=== PATIENT | female | born 1965 | race Caucasian/White ===

== ENCOUNTER 2025-05-09 06:11 | Day surgery (SDC) | payer OTHER ==
[~2025-05-09] VITALS: Ht 162.6 cm; Wt 56.6 kg
[~2025-05-09 06:11] MED LIST: CeFAZolin Sodium 2,000 MG VIAL ONE; DOCU100 PO; Mononessa1 EACH; OXYACE5T PO; PROM25 PO; RXOXYACE PO; YAZ
[2025-05-09] MEDS ORDERED: DIPH50 PO (06:30)
[2025-05-09] MEDS ORDERED: SUPER B-50 COM1 EACH PO (06:31)
[2025-05-09] MEDS ORDERED: Hair, Skin & N1 EACH PO (06:31)
[2025-05-09] MEDS ORDERED: PROBIOTIC1 EA13 PO (06:32)
[2025-05-09] MEDS ORDERED: Dexmedetomidine HCL 200 MCG / 2 ML ONE (06:44)
[2025-05-09] MEDS ORDERED: Lidocaine 2%-Epineph 1:200000 20 ML SDV ONE (06:45)
[2025-05-09] MEDS ORDERED: FentaNYL Citrate 50 MCG/ML 2 ML Injection ONE (06:48)
[2025-05-09] MEDS ORDERED: Ondansetron HCl 2 MG / ML 2ML Vial ONE (06:48)
[2025-05-09] MEDS ORDERED: Midazolam HCl 1MG / ML 2ML Vial ONE (06:48)
[2025-05-09] MEDS ORDERED: Dexamethasone Sod Phos 10 MG/ML 1ML VIAL ONE (06:48)
[2025-05-09] MEDS ORDERED: Sugammadex Sodium 200 MG/2ML SDV (100 MG/ML) ONE (06:48)
[2025-05-09] MEDS ORDERED: Rocuronium Bromide 10 MG/ML 5ML Injection IV ONE (06:48)
[2025-05-09] MEDS ORDERED: Bupivacaine 0.5% HCl 5 MG/ML 30MLVIAL ONE (06:53)
--- NOTE | 2025-05-09 07:17 | NUR ---
05/09/25 0717 DULCE MALHOTRA T/O 0709 O2 3L NC 100% VERSED GIVEN BY DR [place] ANESTHESIAOLOGIST INTERSCALENE BLOCK BLOCK START: 713 END BLOCK:716
[2025-05-09] MEDS ORDERED: Phenylephrine HCl 100 MCG/ML-NS 10MLSYR (1MG/10ML) ONE (07:40)
[2025-05-09] MEDS ORDERED: ePHEDrine Sulfate 50 MG/ML 1ML Injection ONE (07:43)
[2025-05-09 09:37] VITALS: BP 110/57
--- NOTE | 2025-05-09 09:39 | NUR ---
05/09/25 0939 Steven Barnhart DENIES NAUSEA OR PAIN. STATES RIGHT ARM IS NUMB. ALERT AND ORIENTED.
== END 2025-05-09 10:35 | disposition home or self-care (01) ==
LOC: ORSCSDS 06:11
PROVIDERS: Orthopaedic Surgery
PROC: 0LM14ZZ Reattachment of Right Shoulder Tendon, Percutaneous Endoscopic Approach (ICD-10-PCS; principal; 2025-05-09 07:30)
PROC: 0PB94ZZ Excision of Right Clavicle, Percutaneous Endoscopic Approach (ICD-10-PCS; principal; 2025-05-09 07:30)
PROC: 0RNJ4ZZ Release Right Shoulder Joint, Percutaneous Endoscopic Approach (ICD-10-PCS; principal; 2025-05-09 07:30)
DX: M75.121 Complete rotator cuff tear or rupture of right shoulder, not specified as traumatic (principal); M19.011 Primary osteoarthritis, right shoulder; M75.41 Impingement syndrome of right shoulder; M71.9 Bursopathy, unspecified; W01.0XXA Fall on same level from slipping, tripping and stumbling without subsequent striking against object, initial encounter
CPT/HCPCS: C1713; J0166; J0690; J1100; J2250; J2371; J2405; J2704; J3010; J7120